=== PATIENT | female | born 1975 | race Caucasian/White ===

== ENCOUNTER 2021-08-11 14:33 | Outpatient (REF) | payer OTHER, SELFPAY ==
--- NOTE | ~2021-08-11 | XR_ITS ---
EXAMINATION: XR CHEST CLINICAL INFORMATION: Acute sinusitis COMPARISON: None TECHNIQUE: 2 views of the chest were obtained. FINDINGS: No significant abnormality is noted involving the heart, lungs, mediastinum, bony thorax or soft tissues. XR/XR chest 2V IMPRESSION: Unremarkable examination.
[2021-08-11 17:34] LABS: Influenza A PCR NEGATIVE (Negative); Influenza B PCR NEGATIVE (Negative); Resp Syncy Virus RNA Qual PCR NEGATIVE (Negative); SARS COV2 PCR INHOUSE NEGATIVE (Negative)
== END 2021-08-11 14:34 | disposition home or self-care (01) ==
LOC: HO.HMGCX 14:33
PROVIDERS: Visit Provider Internal Medicine
DX: J01.00 Acute maxillary sinusitis, unspecified (principal); R43.9 Unspecified disturbances of smell and taste; Z20.822 Contact with and (suspected) exposure to COVID-19
CPT/HCPCS: 0241U; 36415; 71046

== ENCOUNTER 2023-02-26 07:01 | Outpatient (REF) | payer OTHER, SELFPAY ==
--- NOTE | ~2023-02-26 | XR_ITS ---
EXAMINATION: Bilateral hand and wrist x-rays CLINICAL INFORMATION: Rheumatoid arthritis COMPARISON: None. TECHNIQUE: 4 views of each hand and wrist FINDINGS: Left: Bone alignment is normal. No fracture or dislocation. Normal joint spaces. Normal soft tissues. Right: Bone alignment is normal. No fracture or dislocation. Normal joint spaces. Normal soft tissues. XR/XR hand wrist RT IMPRESSION: Unremarkable examination.
--- NOTE | ~2023-02-26 | XR_ITS ---
EXAMINATION: XR FOOT, BILATERAL XR ANKLE, BILATERAL CLINICAL INFORMATION: Rheumatoid arthritis COMPARISON: Previous x-ray and MRI of the right foot from 2007 TECHNIQUE: 3 views of each foot and 3 views of each ankle FINDINGS: RIGHT FOOT: No fracture or dislocation. Mild hallux valgus deformity at the 1st MTP joint. Small calcaneal spurs. Small osteophyte at the talonavicular joint. Normal soft tissues. RIGHT ANKLE: Bone alignment is normal. No fracture or dislocation. Normal ankle mortise. Normal soft tissues. LEFT FOOT: No fracture or dislocation. Bone alignment is normal. Small osteophyte at the talonavicular joint. Small calcaneal spurs. Soft tissues are normal. LEFT ANKLE: Bone alignment is normal. No fracture or dislocation. Normal ankle mortise. Normal soft tissues. XR/XR foot LT min 3V IMPRESSION: 1. Mild hallux valgus deformity at the right 1st MTP joint. Small osteophytes at the bilateral talonavicular joints. Bilateral calcaneal spurs. 2. Normal ankles.
--- NOTE | ~2023-02-26 | XR_ITS ---
EXAMINATION: XR FOOT, BILATERAL XR ANKLE, BILATERAL CLINICAL INFORMATION: Rheumatoid arthritis COMPARISON: Previous x-ray and MRI of the right foot from 2007 TECHNIQUE: 3 views of each foot and 3 views of each ankle FINDINGS: RIGHT FOOT: No fracture or dislocation. Mild hallux valgus deformity at the 1st MTP joint. Small calcaneal spurs. Small osteophyte at the talonavicular joint. Normal soft tissues. RIGHT ANKLE: Bone alignment is normal. No fracture or dislocation. Normal ankle mortise. Normal soft tissues. LEFT FOOT: No fracture or dislocation. Bone alignment is normal. Small osteophyte at the talonavicular joint. Small calcaneal spurs. Soft tissues are normal. LEFT ANKLE: Bone alignment is normal. No fracture or dislocation. Normal ankle mortise. Normal soft tissues. XR/XR foot RT min 3V IMPRESSION: 1. Mild hallux valgus deformity at the right 1st MTP joint. Small osteophytes at the bilateral talonavicular joints. Bilateral calcaneal spurs. 2. Normal ankles.
--- NOTE | ~2023-02-26 | XR_ITS ---
EXAMINATION: XR FOOT, BILATERAL XR ANKLE, BILATERAL CLINICAL INFORMATION: Rheumatoid arthritis COMPARISON: Previous x-ray and MRI of the right foot from 2007 TECHNIQUE: 3 views of each foot and 3 views of each ankle FINDINGS: RIGHT FOOT: No fracture or dislocation. Mild hallux valgus deformity at the 1st MTP joint. Small calcaneal spurs. Small osteophyte at the talonavicular joint. Normal soft tissues. RIGHT ANKLE: Bone alignment is normal. No fracture or dislocation. Normal ankle mortise. Normal soft tissues. LEFT FOOT: No fracture or dislocation. Bone alignment is normal. Small osteophyte at the talonavicular joint. Small calcaneal spurs. Soft tissues are normal. LEFT ANKLE: Bone alignment is normal. No fracture or dislocation. Normal ankle mortise. Normal soft tissues. XR/XR ankle LT min 3V IMPRESSION: 1. Mild hallux valgus deformity at the right 1st MTP joint. Small osteophytes at the bilateral talonavicular joints. Bilateral calcaneal spurs. 2. Normal ankles.
--- NOTE | ~2023-02-26 | XR_ITS ---
EXAMINATION: Bilateral hand and wrist x-rays CLINICAL INFORMATION: Rheumatoid arthritis COMPARISON: None. TECHNIQUE: 4 views of each hand and wrist FINDINGS: Left: Bone alignment is normal. No fracture or dislocation. Normal joint spaces. Normal soft tissues. Right: Bone alignment is normal. No fracture or dislocation. Normal joint spaces. Normal soft tissues. XR/XR hand wrist LT IMPRESSION: Unremarkable examination.
--- NOTE | ~2023-02-26 | XR_ITS ---
EXAMINATION: XR FOOT, BILATERAL XR ANKLE, BILATERAL CLINICAL INFORMATION: Rheumatoid arthritis COMPARISON: Previous x-ray and MRI of the right foot from 2007 TECHNIQUE: 3 views of each foot and 3 views of each ankle FINDINGS: RIGHT FOOT: No fracture or dislocation. Mild hallux valgus deformity at the 1st MTP joint. Small calcaneal spurs. Small osteophyte at the talonavicular joint. Normal soft tissues. RIGHT ANKLE: Bone alignment is normal. No fracture or dislocation. Normal ankle mortise. Normal soft tissues. LEFT FOOT: No fracture or dislocation. Bone alignment is normal. Small osteophyte at the talonavicular joint. Small calcaneal spurs. Soft tissues are normal. LEFT ANKLE: Bone alignment is normal. No fracture or dislocation. Normal ankle mortise. Normal soft tissues. XR/XR ankle RT min 3V IMPRESSION: 1. Mild hallux valgus deformity at the right 1st MTP joint. Small osteophytes at the bilateral talonavicular joints. Bilateral calcaneal spurs. 2. Normal ankles.
[2023-02-26 07:31] LABS: MANUAL DIFF FLAG NO
[2023-02-26 08:01] LABS: Basophils Percent Auto 0.7 % (0-2); Eosinophils Absolute Auto 0.2 X10*3/uL (0.0-0.4); Eosinophils Percent Auto 3.9 % (0-4); Hematocrit 41.8 % (37.0-47.0); Hemoglobin 14.4 g/dl (12.0-16.0); Imm Gran Abs Auto 0.01 X10*3/uL (0.00-0.03); Imm Gran Pct Auto 0.2 % (0.0-0.4); Lymphocytes Absolute Auto 1.5 X10*3/uL (1.2-4.9); Lymphocytes Percent Auto 33.9 % (20-40); Mean Corpuscular HGB Conc 34.4 g/dl (31.0-35.0); Mean Corpuscular Volume 90.1 fL (80.0-98.0); Mean Platelet Volume 11.7 fL (9.4-12.3); Monocytes Absolute Auto 0.4 X10*3/uL (0.1-1.2); Monocytes Percent Auto 8.9 % (2-11); Neutrophils Absolute Auto 2.3 x10*3/uL (2.0-8.3); Neutrophils Percent Auto 52.4 % (45-73); Platelet Count 198 X10*3/uL (160-400); Red Blood Count 4.64 X10*6/uL (4.20-5.50); White Blood Count 4.4 X10*3/uL (4.8-10.8)
[2023-02-26 08:04] LABS: Appearance Urine Hazy; Color Urine Yellow; Glucose Urine UA Negative (Negative); Leukocyte Esterase Urine Negative (Negative); Nitrite Urine Negative (Negative); Specific Gravity - Urine 1.025 (1.005-1.025); UMIC TRIGGER UA YES; Urine Blood Small (1+) (Negative); Urine Ketones Negative (Negative); Urine Protein Negative (Neg-Trace)
[2023-02-26 08:10] LABS: Bacteria Urine 4+ (None Seen); WBC Urine 0-5 /HPF (0-5)
[2023-02-26 08:36] LABS: Creatinine Urine 129.35 mg/dL; Protein/Creatinine Ratio, Ur 0.07 (<0.2); Total Protein Urine Random 9 mg/dL (<12)
[2023-02-26 08:37] LABS: Erythrocyte Sedimentation Rate 5 MM/HR (0-20)
[2023-02-26 08:50] LABS: Alanine Aminotransferase 31 U/L (0-31); Alkaline Phosphatase 68 U/L (39-117); Anion Gap 12 (12-20); Aspartate Amino Transferase 25 U/L (5-31); Bilirubin Total 0.8 mg/dL (0.0-1.0); Blood Urea Nitrogen 13 mg/dL (9-16); C Reactive Protein 0.28 mg/dL (< or = 0.50); Calcium 9.1 mg/dL (8.4-10.2); Carbon Dioxide 24 mmol/L (22-29); Chloride 111 mmol/L (96-108); Estimated Glomerular Filt Rate > 60; Glucose Random 104 mg/dL (60-115); Sodium 143 mmol/L (135-145); Total Protein 6.4 g/dL (6.5-8.0)
[2023-02-26 09:01] LABS: HBS Num1 5.39 mIU/mL (0-7.99); HBc Num1 0.06 S/CO (0.00-0.79); Hepatitis A Antibody IgM 0.24 Index (0-0.79); Hepatitis B Core Antibody Nonreactive (Nonreactive); Hepatitis B Surface Antigen Negative (Negative); ~HepC Num1 0.09 S/CO (0.00-0.79); ~Hepatitis A Antibody IgM Nonreactive (Nonreactive); ~Hepatitis B Surface Antibody NONREACTIVE (Nonreactive); ~Hepatitis C Antibody Nonreactive (Nonreactive)
[2023-02-26 09:22] LABS: Rheumatoid Factor < 13.0 IU/mL (<15.0)
[2023-02-28 23:44] LABS: TS Negative Control Passed; TS Panel A 0; TS Panel B 1; TS Positive Control Passed; TSpotTB Negative (Negative)
[2023-03-01 14:33] LABS: IgA 233 mg/dL (47-310); IgG 1061 mg/dL (600-1640); IgM 153 mg/dL (50-300)
[2023-03-01 22:48] LABS: Complement C3 147 mg/dL (83-193)
[2023-03-02 12:09] LABS: Prot Elec - Albumin 3.9 g/dL (3.8-4.8); Prot Elec - Alpha1 0.3 g/dL (0.2-0.3); Prot Elec - Alpha2 0.6 g/dL (0.5-0.9); Prot Elec - Beta 1 0.4 g/dL (0.4-0.6); Prot Elec - Beta 2 0.4 g/dL (0.2-0.5); Prot Elec - Total Protein 6.5 g/dL (6.1-8.1)
[2023-03-02 12:24] LABS: Anti Nuclear Antibody Screen NEGATIVE (NEGATIVE)
[2023-03-02 13:02] LABS: Lyme Abs Screen <0.90 index
[2023-03-02 15:44] LABS: Cyclic Citrullinated Peptide <16 UNITS
[2023-03-03 16:49] LABS: Anti DNA DS Antibody <1 IU/mL; Antibody to SS-A Antigen <1.0 NEG AI (<1.0 NEG); Antibody to SS-B Antigen <1.0 NEG AI (<1.0 NEG); SM/Ribonucleoprotein Ab <1.0 NEG AI (<1.0 NEG); Smith Protein <1.0 NEG AI (<1.0 NEG)
[2023-03-06 23:19] LABS: HLA B27 Negative (Negative)
== END 2023-02-26 07:02 | disposition home or self-care (01) ==
LOC: HO.XRAY 07:01
PROVIDERS: PCP Internal Medicine; Visit Provider Student in an Organized Health Care Education/Training Program
DX: Z11.59 Encounter for screening for other viral diseases (principal); Z11.7 Encounter for testing for latent tuberculosis infection; M06.9 Rheumatoid arthritis, unspecified; Z72.89 Other problems related to lifestyle; R29.898 Other symptoms and signs involving the musculoskeletal system
CPT/HCPCS: 36415; 73110; 73130; 73610; 73630; 80053; 81001; 82784; 84156; 84165; 85025; 85652; 86038; 86039; 86140; 86160; 86200; 86225; 86235; 86334; 86431; 86481; 86617; 86618; 86704; 86706; 86709; 86803; 86812; 87340

== ENCOUNTER → 2023-03-05 09:32 | Outpatient (BNVA) | payer OTHER, SELFPAY | PROVIDERS: PCP Internal Medicine; Visit Provider Student in an Organized Health Care Education/Training Program | DX: Z13.89 Encounter for screening for other disorder (principal) ==

== ENCOUNTER 2023-06-15 15:45 | Outpatient (AMB) | payer OTHER, SELFPAY ==
[2023-06-15 15:57] VITALS: BP 126/74; PULSE 69; TEMP 36.6; O2SAT 98; BMI 34.6
--- NOTE | 2023-06-15 15:57 | MHC.OFFVIS ---
Intake Vital Signs 06/15/23 15:57 Height 5 ft 7 in Weight 220 lb 14.451 oz BMI 34.6 BP 126/74 Blood Pressure Location Lt brachial Position Sitting Pulse 69 Pulse Source Pulse Oximeter Temp 97.8 F Temp Source Skin Pulse Oximetry (%) 98 Intake Visit Reasons: 3 mnts f/u for palindrominc rheumatism Intake Note: Pt seen today for follow up. Last took plaquenil about a week ago, states she felt better on Celexa. Would like to discuss other treatment options. 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 Patient stated that she had discontinued the Celexa last visit as she felt that it was not helping her mood very much. At that time hydroxychloroquine was started. She took hydroxychloroquine for approximately 2 months. She did not feel any improvement in her intermittent joint pain and swelling. She restarted Celexa a couple of weeks ago as she did feel the difference in her mood when Celexa was discontinued. She did not want combine Celexa and hydroxychloroquine together for fear of arrhythmias. She continues to get intermittent episodes of diffuse joint pain, usually associated with exertion. It lasts 2 days and it self resolves. She was recently diagnosed with tennis elbow and received a couple of steroid injections without much relief. She continues to have significant pain and swelling of her right elbow. She is going back to Orthopedics tomorrow. Initial history: This is a 47-year-old female with a past medical history of anxiety, depression, PTSD, right tennis elbow who presents for evaluation of diffuse joint pain. The condition started about 5 years ago with pain in both hands and wrists, worse in the right hand. The pain is generally worse after long work days sitting on the computer and typing. She has generalized morning stiffness affecting her entire body lasting around 30 minutes improved with a hot shower as well as Tylenol Arthritis and meloxicam. 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 She also has bilateral ankle pain and swelling. She had to tennis elbow steroid injections in the past which did provide some relief. She denies any skin rashes. She states that her older sister was recently diagnosed with rheumatoid arthritis and was started on methotrexate [facility] Medical History (Updated 06/15/23 @ 16:40 by Yasemin Castillo MD) Anxiety Depression GERD (gastroesophageal reflux disease) History of thyrotoxicosis Obesity PTSD (post-traumatic stress disorder) Right tennis elbow Surgical History H/O shoulder surgery Family History Mother Thyroid disease Hypertension Anxiety Alcohol abuse Osteoarthritis Sister COPD (chronic obstructive pulmonary disease) Depression Rheumatoid arthritis Paternal Grandmother Breast cancer Paternal Grandfather Prostate cancer Social History Household Members: Significant Other and Family Alcohol intake: current Alcohol intake frequency: holidays/special occasions only Patient Tobacco Use Status: Former Tobacco user Current occupational status: employed 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, Reports joint swelling, Reports limited range of motion and Reports stiffness Physical Exam Vital Signs: Last Vital Signs Temp 97.8 F 06/15/23 15:57 Pulse 69 06/15/23 15:57 BP 126/74 06/15/23 15:57 Pulse Ox 98 06/15/23 15:57 BMI result Body Mass Index 34.6 Const General: cooperative, healthy appearing, comfortable, no acute distress and well developed Nutritional Appearance: obese Orientation/consciousness: patient oriented x3 Limitations: no limitations HEENT Head: Yes normocephalic and Yes atraumatic Resp Effort & Inspection: normal respiratory effort and able to speak in complete sentences Skin Other: No psoriasis lesions noted General skin exam: no rashes or lesions noted Neuro General: patient oriented x3 Extrem Other: Right elbow: Swelling and tenderness at the site of the common extensor origin tendon No active synovitis otherwise Assessment & Plan Assessment & Plan (1) Palindromic rheumatism: Code(s): M12.30 - Palindromic rheumatism, unspecified site Plan: This is a 47-year-old female with past medical history of anxiety, depression, PTSD who presents for evaluation of diffuse joint pain. Clinical picture rather consistent with palindromic rheumatism. Patient took hydroxychloroquine for 2 months without improvement. Continues to get intermittent flares of joint pain and swelling. Patient currently has right tennis elbow, she went to Orthopedics and received 2 steroid injections without much improvement. She is going back to Orthopedics tomorrow for re-evaluation. Will discontinue hydroxychloroquine for now. Patient recently restarted Celexa., hydroxychloroquine can be tried again in the future but will have to get the baseline EKG for QTC monitoring then a repeat EKG after hydroxychloroquine is added Follow-up in 3 months (2) Right tennis elbow: Code(s): M77.11 - Lateral epicondylitis, right elbow Plan: Follow-up with Orthopedics Coding Level of Care Code Est Pt Level 3 (51680) Diagnoses Palindromic rheumatism M12.30 Right tennis elbow M77.11
== END 2023-06-15 16:32 | disposition home or self-care (01) ==
PROVIDERS: PCP Internal Medicine; Visit Provider Student in an Organized Health Care Education/Training Program
DX: M12.30 Palindromic rheumatism, unspecified site (principal); M77.11 Lateral epicondylitis, right elbow
CPT/HCPCS: 99213

== ENCOUNTER → 2023-06-15 15:45 | Outpatient (BNVA) | payer OTHER, SELFPAY | PROVIDERS: PCP Internal Medicine; Visit Provider Student in an Organized Health Care Education/Training Program ==